=== PATIENT | female | born 1980 | race Caucasian/White ===

== ENCOUNTER 2017-08-06 19:12 | Emergency (ER) | payer MEDICAID ==
[2017-08-06] MEDS ORDERED: NS 1,000 ML IV ONE (19:49)
[2017-08-06] MEDS ORDERED: KETOROLAC 30 MG/1 ML SDV IVP ONE (19:49)
--- NOTE | 2017-08-06 19:52 | EDPHY ---
H & P Stated Complaint: Vaginal Bleeding since Saturday. Time Seen by Provider: 08/06/17 19:24 HPI/ROS: CHIEF COMPLAINT: Vaginal bleeding pain HISTORY OF PRESENT ILLNESS: The patient is a 37-year-old female who with 1 miscarriage at 12 weeks. She comes to the emergency department complaining of heavy bleeding and suprapubic pain and cramping since Saturday. She has vomited 4 times as well. Her last menstrual period was 2nd week of July, 2 weeks ago. She has not had a fever. No diarrhea. No unusual discharge. She does have some discomfort with urination as well as flank pain. No history of abdominal surgeries. REVIEW OF SYSTEMS: Constitutional: denies: chills, fever, recent illness, recent injury EENTM: denies: blurred vision, double vision, nose congestion Respiratory: denies: cough, shortness of breath Cardiac: denies: chest pain, irregular heart rate, lightheadedness, palpitations Gastrointestinal/Abdominal: See HPI Genitourinary: See HPI Musculoskeletal: denies: joint pain, muscle pain Skin: denies: lesions, rash, jaundice, bruising Neurological: denies: headache, numbness, paresthesia, tingling, dizziness, weakness Hematologic/Lymphatic: denies: blood clots, easy bleeding, easy bruising Immunologic/allergic: denies: HIV/AIDS, transplant EXAM: GENERAL: Well-appearing, obese and in no acute distress. HEAD: Atraumatic, normocephalic. EYES: Pupils equal round and reactive to light, extraocular movements intact, sclera anicteric, conjunctiva are normal. ENT: TMs normal, nares patent, oropharynx clear without exudates. Moist mucous membranes. NECK: Normal range of motion, supple without lymphadenopathy or JVD. LUNGS: Breath sounds clear to auscultation bilaterally and equal. No wheezes rales or rhonchi. HEART: Regular rate and rhythm without murmurs, rubs or gallops. ABDOMEN: Mild diffuse tenderness seems to be focused to suprapubic region., normoactive bowel sounds. No guarding, no rebound. No masses appreciated. BACK: No CVA tenderness, no spinal tenderness, step-offs or deformities EXTREMITIES: Normal range of motion, no pitting or edema. No clubbing or cyanosis. NEUROLOGICAL: Cranial nerves II through XII grossly intact. Normal speech, normal gait. 5/5 strength, normal movement in all extremities, normal sensation PSYCH: Normal mood, normal affect. SKIN: Warm, dry, normal turgor, no visible rashes or lesions. Source: Patient Exam Limitations: No limitations - Personal History LMP (Females 10-55): 1-7 Days Ago Current Tetanus/Diphtheria Vaccine: Yes Current Tetanus Diphtheria and Acellular Pertussis (TDAP): Yes Tetanus Vaccine Date: 2013 - Medical/Surgical History Hx Asthma: No Hx Chronic Respiratory Disease: No Hx Diabetes: No Hx Cardiac Disease: No Hx Renal Disease: No Hx Cirrhosis: No Hx Alcoholism: No Hx HIV/AIDS: No Hx Splenectomy or Spleen Trauma: No Other PMH: borderline diabetes, M1 - Family History Significant Family History: No pertinent family hx - Social History Smoking Status: Never smoked Alcohol Use: None Constitutional: Initial Vital Signs Temperature (C) 36.8 C 08/06/17 19:36 Heart Rate 68 08/06/17 19:36 Respiratory Rate 16 08/06/17 19:36 Blood Pressure 130/98 H 08/06/17 19:36 O2 Sat (%) 98 08/06/17 19:36 O2 Delivery Mode Room Air Allergies/Adverse Reactions: No Known Allergies Allergy (Verified 08/06/17 19:38) Home Medications: Medication Instructions Recorded NK [No Known Home Meds] 08/06/17 Medical Decision Making - Diagnostics Imaging Results: Imaging Impressions Pelvic/Renal Ultrasound 08/06/17 19:50 Impression: 1. Follicular cyst right ovary. 2. Mild amount of free fluid in the cul-de-sac. 3. Color-flow Doppler pattern are above the right ovary is less prominent than on the left. This could be related to positioning of the ovary. Torsion is felt to be less likely. Clinical correlation suggested. If symptoms worsen, repeat ultrasound can be utilized. 4. Retroflexed uterine with relatively normal endometrial stripe. Findings discussed with Zhao Moffett M.D. at 21:52 hour, 08/06/2017. Imaging: Discussed imaging studies w/ call center consultant Radiologist ED Course/Re-evaluation: 10:00 p.m. We discussed the lab and test results. Lab results are reassuring. Ultrasound shows a resolving right ovarian cyst. This is reasonable explanation for her pain. His for his her bleeding that appears to be mid cycle this is unusual. She is not . No sign of miscarriage. No tenderness over her appendix. I will have her follow up with her family doctor tomorrow or the next day for re-evaluation. We also discussed indications for returning here. Her abdominal exam is benign. She is afebrile. Her urinalysis is unremarkable of the blood from her vaginal bleeding. Differential Diagnosis: Partial list of the Differential diagnosis considered include but were not limited to; ovarian cyst, dysfunctional uterine bleeding, urinary tract infection and although unlikely based on the history and physical exam, I also considered kidney stone, , ectopic. I discussed these differential diagnoses and the plan with the patient as well as the usual and expected course. The patient understands that the diagnosis is provisional and that in medicine we are not always correct and that further workup is often warranted. Usual and customary warnings were given. All of the patient's questions were answered. The patient was instructed to return to the emergency department should the symptoms at all worsen or return, otherwise to followup with the physician as we discussed. - Data Points Laboratory Results: Laboratory Results 08/06/17 19:10 08/06/17 08/06/17 20:29 19:10 WBC 7.06 10^3/uL 10^3/uL (3.80-9.50) RBC 4.13 10^6/uL L 10^6/uL (4.18-5.33) Hgb 11.6 g/dL L g/dL (12.6-16.3) Hct 35.5 % L % (38.0-47.0) MCV 86.0 fL fL (81.5-99.8) MCH 28.1 pg pg (27.9-34.1) MCHC 32.7 g/dL g/dL (32.4-36.7) RDW 15.1 % % (11.5-15.2) Plt Count 215 10^3/uL 10^3/uL (150-400) MPV 10.6 fL fL (8.7-11.7) Neut % (Auto) 61.6 % % (39.3-74.2) Lymph % (Auto) 29.5 % % (15.0-45.0) [place] % (Auto) 7.4 % % (4.5-13.0) Eos % (Auto) 1.1 % % (0.6-7.6) Baso % (Auto) 0.3 % % (0.3-1.7) Nucleat RBC Rel Count 0.0 % % (0.0-0.2) Absolute Neuts (auto) 4.35 10^3/uL 10^3/uL (1.70-6.50) Absolute Lymphs (auto) 2.08 10^3/uL 10^3/uL (1.00-3.00) Absolute Monos (auto) 0.52 10^3/uL 10^3/uL (0.30-0.80) Absolute Eos (auto) 0.08 10^3/uL 10^3/uL (0.03-0.40) Absolute Basos (auto) 0.02 10^3/uL 10^3/uL (0.02-0.10) Absolute Nucleated RBC 0.00 10^3/uL 10^3/uL (0-0.01) Immature Gran % 0.1 % % (0.0-1.1) Immature Gran # 0.01 10^3/uL 10^3/uL (0.00-0.10) POC Sodium 139 mEq/L mEq/L (135-145) POC Potassium 3.5 mEq/L mEq/L (3.3-5.0) POC Chloride 104.0 mEq/L mEq/L (97-110) POC Total CO2 25 mEq/L mEq/L (22-31) POC BUN 11 mg/dL mg/dL (7-23) POC Creatinine 0.8 mg/dL mg/dL (0.6-1.0) POC Glucose 88 mg/dL mg/dL (70-100) POC Calcium 8.8 mg/dL mg/dL (8.5-10.4) POC Total Bilirubin 0.6 mg/dL mg/dL (0.1-1.4) POC AST 22 IU/L IU/L (14-46) POC ALT 19 IU/L IU/L (9-52) POC Alk Phosphatase 64 IU/L IU/L (38-126) POC Total Protein 6.8 g/dL g/dL (6.3-8.2) POC Albumin 3.2 g/dL L g/dL (3.5-5.0) Medications Given: Discontinued Medications Sodium Chloride (Ns) 1,000 mls @ 0 mls/hr IV ONCE ONE; Wide Open PRN Reason: Protocol Stop: 08/06/17 19:50 Last Admin: 08/06/17 20:02 Dose: 1,000 mls Ketorolac Tromethamine (Toradol) 30 mg IVP EDNOW ONE Stop: 08/06/17 19:50 Last Admin: 08/06/17 20:04 Dose: 30 mg Point of Care Test Results: Chemistry 08/06/17 20:29 POC Sodium 139 mEq/L mEq/L (135-145) POC Potassium 3.5 mEq/L mEq/L (3.3-5.0) POC Chloride 104.0 mEq/L mEq/L (97-110) POC Total CO2 25 mEq/L mEq/L (22-31) POC BUN 11 mg/dL mg/dL (7-23) POC Creatinine 0.8 mg/dL mg/dL (0.6-1.0) POC Glucose 88 mg/dL mg/dL (70-100) POC Calcium 8.8 mg/dL mg/dL (8.5-10.4) POC Total Bilirubin 0.6 mg/dL mg/dL (0.1-1.4) POC AST 22 IU/L IU/L (14-46) POC ALT 19 IU/L IU/L (9-52) POC Alk Phosphatase 64 IU/L IU/L (38-126) POC Total Protein 6.8 g/dL g/dL (6.3-8.2) POC Albumin 3.2 g/dL L g/dL (3.5-5.0) Departure - Departure Disposition: Home, Routine, Self-Care Clinical Impression: Dysfunctional uterine bleeding, Right ovarian cyst Condition: Fair Instructions: Dysfunctional Uterine Bleeding (ED), Ovarian Cyst (ED) Referrals: [facility] [Other] - 1-2 days without fail
[2017-08-06 21:19] LABS: PLATELET COUNT 215 10^3/uL (150-400)
[2017-08-06 22:44] VITALS: BP 129/89
== END 2017-08-06 22:41 | disposition home or self-care (01) ==
LOC: CED 19:12
DX: N93.9 Abnormal uterine and vaginal bleeding, unspecified (principal); N83.201 Unspecified ovarian cyst, right side; E86.9 Volume depletion, unspecified
CPT/HCPCS: 76856-PO; 80053-PO; 96374; J1885